=== PATIENT | male | born 1975 | race Two or more races ===

== ENCOUNTER 2020-03-23 13:11 | Emergency (ER) | payer MEDICAID ==
[~2020-03-23] VITALS: Ht 170.2 cm; Wt 74.8 kg
--- NOTE | 2020-03-23 13:11 | NUR ---
PT BIB SELF C/O HALLUCINATING "IM HEARING VOICES TELLING ME TO HURT MY SELF" DENIES SI. PT IS AAOX3, NOT IN RESPIRATORY DISTRESS, V/S STABLE, KEPT RESTED AND COMFORTABLE. SITTER AT BEDSIDE.
--- NOTE | 2020-03-23 13:23 | NUR ---
URINE SPECIMEN COLLECTED AND SENT TO LAB.
--- NOTE | 2020-03-23 13:32 | NUR ---
ER PHLEB AT BEDSIDE FOR BLOOD DRAW.
[2020-03-23 13:43] LABS: BASOPHILS % (AUTO) 0.5 % (0.0-2.0); EOSINOPHILS % (AUTO) 3.7 % (0.0-6.0); HEMATOCRIT 45 % (39-51); HEMOGLOBIN 15.6 g/dL (13.5-17.5); LYMPHOCYTES # (AUTO) 1.1 /CMM (0.8-4.8); LYMPHOCYTES % (AUTO) 11.5 % (20.0-44.0); MEAN CORPUSCULAR HGB CONC 34 g/dl (31.0-36.0); MEAN CORPUSCULAR VOLUME 92 fL (80-96); MONOCYTES # (AUTO) 0.7 /CMM (0.1-1.30); MONOCYTES % (AUTO) 7.2 % (2.0-12.0); NEUTROPHILS % (AUTO) 77.1 % (43.0-81.0); PLATELET COUNT (AUTO) 285 /CMM (150-450); RED BLOOD CELL COUNT(AUTO) 4.95 MIL/uL (4.5-6.0); WHITE BLOOD COUNT (AUTO) 9.1 K/uL (4.3-11.0)
[2020-03-23 13:50] LABS: CALCIUM, SERUM 8.7 mg/dL (8.5-10.1); CARBON DIOXIDE 29 mmol/L (21-32); CHLORIDE 101 mmol/L (98-107); CREATININE 1.3 mg/dL (0.6-1.3); GLUCOSE 122 mg/dL (74-106); POTASSIUM 2.9 mmol/L (3.5-5.1); SODIUM SERUM 139 mmol/L (136-145); UREA NITROGEN, BLOOD 11 mg/dL (7-18)
[2020-03-23 13:50] LABS: APPEARANCE,URINE Clear (CLEAR); BILIRUBIN,URINE Negative (NEGATIVE); BLOOD, URINE Negative Ery/uL (NEGATIVE); COLOR,URINE Yellow (YELLOW); KETONES,URINE Negative (NEGATIVE); LEUKOCYTE ESTERASE ,URINE Negative (NEGATIVE); NITRITE, URINE Negative (NEGATIVE); PH,URINE 6.5 (5.0-8.0); PROTEIN,URINE Negative (NEGATIVE); UGLUCOSE Negative (NEGATIVE); UROBILINOGEN,URINE 0.2 EU/dL (0.2)
[2020-03-23 13:56] LABS: ALANINE AMINOTRANSFERASE 120 U/L (12-78); ALBUMIN 3.8 g/dL (3.4-5.0); ALCOHOL, BLOOD < 3 mg/dL (0-0); ALKALINE PHOSPHATASE 78 U/L (46-116); ASPARTATE AMINOTRANSFERASE 243 U/L (15-37); BILIRUBIN,DIRECT 0.2 mg/dL (0.0-0.2); BILIRUBIN,TOTAL 1.3 mg/dL (0.2-1.0); TOTAL PROTEIN, SERUM 7.8 g/dL (6.4-8.2)
[2020-03-23 14:01] LABS: ACETAMINOPHEN 0 ug/ml (10-30); SALICYLATE < 0.2 mg/dL (2.8-20.0)
--- NOTE | 2020-03-23 14:15 | NUR ---
SW AT BEDSIDE FOR EVAL.
[2020-03-23] MEDS ORDERED: ACETAMINOPHEN ES 500 MG TABLET ONE (14:21)
--- NOTE | 2020-03-23 14:26 | NUR ---
Patient given written and verbal discharge instructions. Patient verbalizes understanding of instructions. Patient is ambulatory with steady gait. Refuses offer of alf placement. Patient given list of available shelters in surrounding area.
[2020-03-23 14:27] VITALS: BP 128/78
[2020-03-23] MEDS ORDERED: ACETAMINOPHEN ES 500 MG TABLET PO ONE (14:30)
--- NOTE | 2020-03-23 14:40 | NUR ---
This SW met with the patient at bedside. Patient is a primarily Frisian speaking 44 year old male. Patient was receptive with speaking to this SW. Patient reports that he has been feeling "odd". Patient reports that on Monday evening he was given a drink at work and per patient he thought it smelled and tasted funny. Patient reports on feeling better but not 100% himself. Per patient, he did not go to work on Monday for feeling "odd". Per patient, he asked his boss and his boss' for assistance on where to find some medical clearance. 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 Per patient, he was using Crystal meth to help with his asthma. Per patient, he has been feeling better and more positive but with this change drink he has been feeling odd. Patient's RN Manuel interrupted this assessment to infrom both this SW and this patient that he has been medically cleared and ready to be discharge. Patient understood and asked this SW to inform his brother Hany that he has been discharge. Per patient, brother Hany was in the waiting room. Patient's brother was not in the waiting room and this SW gave him a call. Per Hany, he was in his car outside of [facility] waiting for his brother. This SW informed him that the patient would be discharged in a few minutes and meet him soon. Hany thanked this SW for providing this information.
== END 2020-03-23 14:29 | disposition home or self-care (01) ==
LOC: ER 13:18
DX: F19.10 Other psychoactive substance abuse, uncomplicated (principal)
CPT/HCPCS: 36415; 80048; 80076; 80305; 80307; 80329; 81001; 85025; 99283; G0480; 81000-TC